=== PATIENT | male | born 1965 | race African-American/Black ===

== ENCOUNTER 2021-11-10 09:42 | Emergency (ER) | payer OTHER, SELFPAY ==
--- NOTE | ~2021-11-10 | XR_ITS ---
EXAMINATION: [id number] DATE: 11/10/2021 11:28 INDICATION: Neck pain. TECHNIQUE: 4 views of cervical spine were obtained. COMPARISON: None. FINDINGS: There is 2 mm retrolisthesis of C4 on C5 and C5 on C6. There is 11 degrees levoscoliosis of cervicothoracic spine. Vertebral body heights are normal. There is mildly decreased disc height at C 4-C5 and C5-C6. The facet joints are unremarkable. There is mild central canal stenosis at C4-C5 and C5-C6. IMPRESSION: 1. Mild cervical spondylosis. 2. Cervicothoracic levoscoliosis. Reviewed, dictated and finalized at location A. [employer]
[2021-11-10 09:51] VITALS: BP 163/84; PULSE 77; RESP 14; TEMP 36.2; O2SAT 96
--- NOTE | 2021-11-10 11:18 | ED.NECK ---
HPI - Neck Pain/Injury General Chief Complaint: Neck Pain/Injury Stated Complaint: neck pain x2 weeks Time Seen by Provider: 11/10/21 11:12 Source: patient Mode of arrival: ambulatory Limitations: no limitations History of Present Illness HPI Narrative: This is a 56-year-old male that presents to the emergency department for neck pain ongoing over the last couple of weeks. No known injury or trauma. Reports pain on the left side of his neck that radiates into her shoulder. Worse with certain movements and relieved with rest. He has been taking Tylenol and using icy hot with some relief as well. Denies fever, numbness, or weakness. Related Data Allergies Allergy/AdvReac Type Severity Reaction Status Date / Time shellfish derived AdvReac Severe N/V Verified 02/19/19 23:40 amoxicillin AdvReac Intermediate HIVES Verified 02/19/19 23:40 Review of Systems Review of Systems: CONSTITUTIONAL: Denies fever SKIN: Denies rash MUSCULOSKELETAL: Reports joint pain, and myalgia. NEUROLOGIC: Denies headache, numbness, or weakness. All systems reviewed & are unremarkable except as noted in HPI and below PMFSH Past Medical History Medical History (Updated 11/10/21 @ 12:15 by Karolina Rea PA-C) History of hypertension Social History Social History (Updated 11/10/21 @ 11:19 by Karolina Rea PA-C) Substance use: never Exam Narrative: GENERAL: Well-appearing, well-nourished, and in no acute distress. HEAD: Normocephalic, atraumatic. EYES: EOMI. NECK: Supple. No adenopathy or masses. No midline spinal tenderness CHEST: Clear to auscultation. No respiratory distress. No wheezes rales or rhonchi HEART: Regular rate and rhythm EXTREMITIES: Normal range of motion. No edema. Strength equal in bilateral upper extremities (5/5) SKIN: Warm, dry, no rash. NEURO: No focal deficits. Alert and oriented x3. PSYCH: Normal mood and affect Course Vital Signs Vital signs: Vital Signs Temperature 97.2 F L 11/10/21 09:51 Pulse Rate 77 11/10/21 09:51 Respiratory Rate 14 11/10/21 09:51 Blood Pressure 163/84 H 11/10/21 09:51 Pulse Oximetry 96 11/10/21 09:51 Temperature 97.2 F L 11/10/21 09:51 Pulse Rate 77 11/10/21 09:51 Respiratory Rate 14 11/10/21 09:51 Blood Pressure 163/84 H 11/10/21 09:51 Pulse Oximetry 96 11/10/21 09:51 MDM - Neck Pain/Injury MDM Narrative Medical decision making narrative: This is a 56 year old male that presents to the ER for neck pain present over the last couple weeks. No known injury or trauma. He is afebrile and nontoxic-appearing. He is neurologically intact. Cervical spine x-ray shows mild cervical spondylosis and cervicothoracic levoscoliosis. Patient was updated on case findings. Pain does seem to be more muscular in nature. He was instructed to rest, use heat, alternate Tylenol and anti-inflammatories. Will be prescribed a muscle relaxer as needed for pain. He is to follow-up with his primary care doctor. He was given warnings to return to the ER Imaging Data Radiologist's impression: ITS Impressions Cervical Spine X-Ray 11/10/21 11:33 IMPRESSION: 1. Mild cervical spondylosis. 2. Cervicothoracic levoscoliosis. Critical Care Time Critical Care Time Critical Care Time: No Discharge Plan Discharge Clinical Impression: Strain of neck muscle Qualifiers: Encounter type: initial encounter Qualified Code(s): S16.1XXA - Strain of muscle, fascia and tendon at neck level, initial encounter Patient Disposition: Home, Self-Care Condition: Stable Instructions: Cervical Strain (ED) Additional Instructions: Return to the ER if you experience fever, weakness, numbness, or any other symptoms that are concerning to you Rest, use ice/heat, take anti-inflammatories (Aleve, Ibuprofen, Naproxen, etc) or Tylenol as needed for pain as well as muscle relaxer (Flexeril) as needed for pain. Muscle relaxers can make you drowsy, do not drive if you t
[2021-11-10] MEDS: KETOROLAC (*BKC) 60 MG/2 ML VIAL IM (11:40)
== END 2021-11-10 12:30 | disposition home or self-care (01) ==
PROVIDERS: Emergency Provider Emergency Medicine
DX: S16.1XXA Strain of muscle, fascia and tendon at neck level, initial encounter (principal); I10 Essential (primary) hypertension; X58.XXXA Exposure to other specified factors, initial encounter
CPT/HCPCS: 72040; 96372; 99283; J1885

== ENCOUNTER 2025-06-02 14:07 | Emergency (ER) | payer OTHER, SELFPAY ==
--- NOTE | ~2025-06-02 | XR_ITS ---
EXAM/PROCEDURE: XR chest 2V - 06/02/2025 14:35 CDT HISTORY: 60 years old Male with cough x 3 wks, SOB with exertion, asthma, prev smoker TECHNIQUE: Two view(s) of the chest. COMPARISON: None available. FINDINGS: LUNGS/ PLEURA: No focal consolidation. No appreciable pneumothorax or large pleural effusion. HEART/ MEDIASTINUM: Heart appears normal in size. BONES: No acute osseous abnormality. OTHER: Visualized upper abdomen is unremarkable. IMPRESSION: No acute process. Reviewed, dictated and finalized at location A. IMPRESSION: No acute process.
[2025-06-02 14:22] VITALS: BP 136/71; PULSE 72; RESP 16; TEMP 36.4; O2SAT 98
--- NOTE | 2025-06-02 14:28 | ED.URI ---
HPI - URI/Sore Throat General Chief Complaint: Upper Respiratory Infection Stated Complaint: SORE THROAT/COUGH Time Seen by Provider: 06/02/25 14:28 Source: patient Mode of arrival: ambulatory Limitations: no limitations History of Present Illness HPI Narrative: 60-year-old male presents with complaint of postnasal drainage, scratchy throat, cough for 3 weeks. Reports intermittent mild nasal/ sinus congestion. Denies sinus pressure. Afebrile. Reports shortness of breath with exertion. Has tried [id number] DayQuil NyQuil cold and flu without relief of cough. All systems reviewed and negative except as noted above. Related Data Home Medications ?Medication ?Instructions ?Recorded ?Confirmed ?Last Taken ?Type amlodipine 10 mg tablet 10 mg PO DAILY 06/02/25 06/02/25 Unknown History escitalopram oxalate 20 mg tablet 10 mg PO DAILY 06/02/25 06/02/25 Unknown History ferrous sulfate 325 mg (65 mg 65 mg PO DAILY 06/02/25 06/02/25 Unknown History iron) tablet (FeroSul) finasteride 5 mg tablet 5 mg PO DAILY 06/02/25 06/02/25 Unknown History fluticasone propionate 50 1 spray intranasal DAILY 06/02/25 06/02/25 Unknown History mcg/actuation nasal spray,suspension losartan 100 mg tablet 100 mg PO DAILY 06/02/25 06/02/25 Unknown History pantoprazole 40 mg tablet,delayed 40 mg PO DAILY 06/02/25 06/02/25 Unknown History release sildenafil 100 mg tablet 100 mg PO Q24H PRN sexual activity 06/02/25 06/02/25 Unknown History tamsulosin 0.4 mg capsule 0.4 mg PO Q24H 06/02/25 06/02/25 Unknown History tiotropium bromide 2.5 2 puff inhalation Q24H 06/02/25 06/02/25 Unknown History mcg/actuation mist for inhalation (Spiriva Respimat) Allergies Allergy/AdvReac Type Severity Reaction Status Date / Time shellfish derived AdvReac Severe N/V Verified 06/02/25 14:13 amoxicillin AdvReac Intermediate HIVES Verified 06/02/25 14:13 Review of Systems Review of Systems: CONSTITUTIONAL: Denies fever, chills, or sweats. EYES: Denies visual changes, redness, or discharge. ENT: Reports rhinorrhea, congestion, postnasal drainage, itchy throat. Denies otalgia. CARDIOVASCULAR: Denies chest pain, palpitations, or edema. RESPIRATORY: reports cough . Denies dyspnea. GASTROINTESTINAL: Denies abdominal pain, nausea, vomiting, or diarrhea. GENITOURINARY: Denies dysuria or hematuria. SKIN: Denies rash or itching. MUSCULOSKELETAL: Denies back pain, joint pain, or myalgia. NEUROLOGIC: Denies headache, numbness, or weakness. PSYCHIATRIC: Denies anxiety or depression. All other systems reviewed are negative, except as documented in HPI. [facility] Past Medical History Medical History (Updated 06/02/25 @ 15:21 by Elsa Cantu NP) History of hypertension Social History Social History (Updated 11/10/21 @ 11:19 by Karolina Rea PA-C) Substance use: never Comments At time of signature, agree with nursing past medical, surgical, social and family history. There is no relevant family history pertinent to the presenting complaint. Exam Narrative: GENERAL: This is a well-nourished, well-developed patient, in no apparent distress. HEAD: normocephalic, atraumatic. EYES: PERRL. Sclera clear/white. Vision is grossly intact. EARS: External ears normal, auditory canals clear and without drainage, TMs normal without perforation. Hearing grossly intact. NOSE: External nose normal with no obvious nasal discharge, nares without redness, no rhinorrhea. THROAT: Mucous membranes moist, clear nasal drainage with mild erythema. No swelling or exudates. NECK: Neck supple, non-tender without lymphadenopathy, masses or thyromegaly. CARDIOVASCULAR: Regular rate and rhythm without murmurs, gallops, or rubs. RESPIRATORY: Clear to auscultation. Breath sounds equal bilaterally. No wheezes, rales, or rhonchi. SKIN: warm, Dry, intact with no suspicious lesions or rash, good texture and turgor. NEURO: awake, alert, and oriented to person, place and time. There were no obvious focal neurologic abnormalities. EXTREMITIES: No joint tenderness, effusion, or edema noted. Course Course Level of Care: Express Care Visit Vital Signs Vital signs: Vital Signs Temperature 36.4 C L 06/02/25 14:22 Pulse Rate 72 06/02/25 14:22 Respiratory Rate 16 06/02/25 14:22 Blood Pressure 136/71 06/02/25 14:22 Pulse Oximetry 98 06/02/25 14:22 Temperature 36.4 C L 06/02/25 14:22 Pulse Rate 72 06/02/25 14:22 Respiratory Rate 16 06/02/25 14:22 Blood Pressure 136/71 06/02/25 14:22 Pulse Oximetry 98 06/02/25 14:22 Reviewed MDM - URI/Sore Throat MDM Narrative Medical decision making narrative: normal chest x-ray. Will treat patient for bacterial sinusitis due to duration of symptoms. Patient is well-appearing, nontoxic. Recommend follow-up with primary care physician if not improving. Differential Diagnosis Differential diagnosis: Likely upper respiratory infection, sinusitis, viral infection and other ( Pneumonia) Imaging Data My impression: Agree with radiologist Radiologist's impression: EXAM/PROCEDURE: XR chest 2V - 06/02/2025 14:35 CDT HISTORY: 60 years old Male with cough x 3 wks, SOB with exertion, asthma, prev smoker TECHNIQUE: Two view(s) of the chest. COMPARISON: None available. FINDINGS: LUNGS/ PLEURA: No focal consolidation. No appreciable pneumothorax or large pleural effusion. HEART/ MEDIASTINUM: Heart appears normal in size. BONES: No acute osseous abnormality. OTHER: Visualized upper abdomen is unremarkable. IMPRESSION: No acute process. Discharge Plan Discharge Clinical Impression: Acute bacterial sinusitis Patient Disposition: Home Condition: Stable Instructions: Antibiotic Form, Sinusitis (ED) Additional Instructions: the x-ray of your chest was normal. Take medications as prescribed. Take an antihistamine daily such as Claritin or Zyrtec. Drink at least 64 oz of water a day. See your primary care physician if symptoms are not improving. Patient Language: Mohawk Prescriptions: New doxycycline hyclate 100 mg capsule 100 mg PO BID 7 Days Qty: 14 0RF benzonatate 200 mg capsule 200 mg PO TID PRN (Reason: cough) Qty: 20 0RF No Action amlodipine 10 mg tablet 10 mg PO DAILY escitalopram oxalate 20 mg tablet 10 mg PO DAILY ferrous sulfate [FeroSul] 325 mg (65 mg iron) tablet 65 mg PO DAILY finasteride 5 mg tablet 5 mg PO DAILY fluticasone propionate 50 mcg/actuation spray,suspension 1 spray INTRANASAL DAILY losartan 100 mg tablet 100 mg PO DAILY pantoprazole 40 mg tablet,delayed release (DR/EC) 40 mg PO DAILY sildenafil 100 mg tablet 100 mg PO Q24H PRN (Reason: sexual activity) tamsulosin 0.4 mg capsule 0.4 mg PO Q24H Spiriva Respimat 2.5 mcg/actuation mist 2 puff INHALATION Q24H cyclobenzaprine 10 mg tablet 10 mg PO TID PRN (Reason: muscle spasm) Qty: 14 0RF Follow-up/Referrals: [facility] [Primary Care Provider] - Time of Disposition: 15:22
== END 2025-06-02 15:24 | disposition home or self-care (01) ==
PROVIDERS: Emergency Provider Nurse Practitioner Family
DX: J01.90 Acute sinusitis, unspecified (principal); I10 Essential (primary) hypertension
CPT/HCPCS: 71046; 99213; G0463

== ENCOUNTER 2025-10-10 16:01 | Emergency (ER) | payer OTHER, SELFPAY ==
[2025-10-10 16:10] VITALS: BP 151/83; PULSE 76; RESP 16; TEMP 36.6; O2SAT 98
--- NOTE | 2025-10-10 16:26 | ED.URI ---
HPI - URI/Sore Throat General Chief Complaint: Upper Respiratory Infection Stated Complaint: COUGH Time Seen by Provider: 10/10/25 16:13 Source: patient and RN notes reviewed Mode of arrival: ambulatory Limitations: no limitations History of Present Illness HPI Narrative: 60-year-old male patient with history of COPD and well-controlled diabetes presents today with a 5 day history of productive cough and rhinorrhea. Denies fever or shortness of breath. He has been taking Mucinex and TheraFlu with intermittent improvement. He also uses Spiriva and has an albuterol inhaler but not been using the albuterol inhaler for this cough. Cough is keeping him awake at night. States blood sugars are well controlled anywhere from mid 90s to 110. Related Data Home Medications ?Medication ?Instructions ?Recorded ?Confirmed ?Last Taken ?Type amlodipine 10 mg tablet 10 mg PO DAILY 06/02/25 10/10/25 Unknown History escitalopram oxalate 20 mg tablet 10 mg PO DAILY 06/02/25 06/02/25 Unknown History ferrous sulfate 325 mg (65 mg 65 mg PO DAILY 06/02/25 06/02/25 Unknown History iron) tablet (FeroSul) finasteride 5 mg tablet 5 mg PO DAILY 06/02/25 06/02/25 Unknown History fluticasone propionate 50 1 spray intranasal DAILY 06/02/25 06/02/25 Unknown History mcg/actuation nasal spray,suspension losartan 100 mg tablet 100 mg PO DAILY 06/02/25 10/10/25 Unknown History pantoprazole 40 mg tablet,delayed 40 mg PO DAILY 06/02/25 10/10/25 Unknown History release sildenafil 100 mg tablet 100 mg PO Q24H PRN sexual activity 06/02/25 10/10/25 Unknown History tamsulosin 0.4 mg capsule 0.4 mg PO Q24H 06/02/25 10/10/25 Unknown History tiotropium bromide 2.5 2 puff inhalation Q24H 06/02/25 06/02/25 Unknown History mcg/actuation mist for inhalation (Spiriva Respimat) tirzepatide (weight loss) 5 mg/0.5 mg subcut 10/10/25 Unknown History mL subcutaneous pen injector (Zepbound) Allergies Allergy/AdvReac Type Severity Reaction Status Date / Time lisinopril Allergy Unknown Unknown Verified 10/10/25 16:12 shellfish derived AdvReac Severe N/V Verified 06/02/25 14:13 amoxicillin AdvReac Intermediate HIVES Verified 06/02/25 14:13 [facility] Past Medical History Medical History (Updated 10/10/25 @ 16:31 by Maxine Curry, TIGIST, JEWELL) COPD (chronic obstructive pulmonary disease) Diabetes History of hypertension Social History Social History Substance use: never Comments At time of signature, I have reviewed and agree with nursing past medical, surgical, social and family history unless otherwise noted. Please see nursing chart for further information. There is no relevant family history pertinent to the presenting complaint Exam Narrative: GENERAL: Well-appearing, well-nourished, and in no acute distress. HEAD: Normocephalic, atraumatic. EYES: EOMI. No redness or drainage. Conjunctivae normal. ENT: Mucous membranes pink and moist. Nares clear. + rhinorrhea. TMs normal bilaterally. Throat normal. Uvula midline. NECK: Normal AROM. Supple. No lymphadenopathy. CHEST: No respiratory distress. Clear to auscultation. HEART: Regular rate and rhythm. No murmur appreciated. EXTREMITIES: Normal range of motion. No edema. SKIN: Warm, dry, no rash. Capillary refill normal. Normal skin turgor. NEURO: No focal deficits. Alert and oriented x3. Gait steady. PSYCH: Normal affect. No signs of depression or anxiety. Course Course Level of Care: Express Care Visit Vital Signs Vital signs: Vital Signs Temperature 98 F 10/10/25 16:10 Pulse Rate 76 10/10/25 16:10 Respiratory Rate 16 10/10/25 16:10 Blood Pressure 151/83 H 10/10/25 16:10 Pulse Oximetry 98 10/10/25 16:10 Temperature 98 F 10/10/25 16:10 Pulse Rate 76 10/10/25 16:10 Respiratory Rate 16 10/10/25 16:10 Blood Pressure 151/83 H 10/10/25 16:10 Pulse Oximetry 98 10/10/25 16:10 Reviewed MDM - URI/Sore Throat MDM Narrative Medical decision making narrative: 60-year-old male patient with history of COPD and well-controlled diabetes presents today with a 5 day history of productive cough and rhinorrhea. Denies fever or shortness of breath. He has been taking Mucinex and TheraFlu with intermittent improvement. He also uses Spiriva and has an albuterol inhaler but not been using the albuterol inhaler for this cough. Cough is keeping him awake at night. States blood sugars are well controlled anywhere from mid 90s to 110. Upon exam, rhinorrhea present. Lung sounds normal. Patient will be treated burst of prednisone, Tessalon Perles, and a refill of his albuterol inhaler. Symptoms likely viral in etiology. Discussed [id number] medication use and duration of illness. Vital signs stable. Patient agrees with plan. Anticipatory guidance and ED precautions given. Differential Diagnosis Differential diagnosis: Likely upper respiratory infection, viral infection and other (Pneumonia, COPD exacerbation) Critical Care Time Critical Care Time Critical Care Time: No Discharge Plan Discharge Clinical Impression: COPD exacerbation Upper respiratory infection Qualifiers: URI type: unspecified URI Qualified Code(s): J06.9 - Acute upper respiratory infection, unspecified Patient Disposition: Home Condition: Stable Instructions: Upper Respiratory Infection (DC) Additional Instructions: Please take all medications as prescribed. Use albuterol inhaler coughing episodes, shortness of breath, or wheezing. As discussed, if symptoms worsen to include fever greater than 100.3, shortness of breath, wheezing, please go to the ER immediately for further evaluation and treatment. Patient Language: German Prescriptions: New benzonatate 200 mg capsule 200 mg PO TID PRN (Reason: cough) Qty: 20 0RF prednisone 50 mg tablet 50 mg PO DAILY 5 Days Qty: 5 0RF albuterol sulfate 90 mcg/actuation HFA aerosol inhaler 2 inh inhalation Q4-6H PRN (Reason: shortness of breath or wheezing) Qty: 8.5 0RF No Action Zepbound 5 mg/0.5 mL pen injector SUBCUT amlodipine 10 mg tablet 10 mg PO DAILY escitalopram oxalate 20 mg tablet 10 mg PO DAILY ferrous sulfate [FeroSul] 325 mg (65 mg iron) tablet 65 mg PO DAILY finasteride 5 mg tablet 5 mg PO DAILY fluticasone propionate 50 mcg/actuation spray,suspension 1 spray INTRANASAL DAILY losartan 100 mg tablet 100 mg PO DAILY pantoprazole 40 mg tablet,delayed release (DR/EC) 40 mg PO DAILY sildenafil 100 mg tablet 100 mg PO Q24H PRN (Reason: sexual activity) tamsulosin 0.4 mg capsule 0.4 mg PO Q24H Spiriva Respimat 2.5 mcg/actuation mist 2 puff INHALATION Q24H cyclobenzaprine 10 mg tablet 10 mg PO TID PRN (Reason: muscle spasm) Qty: 14 0RF Follow-up/Referrals: Raina,Mary [Other] Time of Disposition: 16:32
== END 2025-10-10 16:36 | disposition home or self-care (01) ==
PROVIDERS: Emergency Provider Nurse Practitioner
DX: J44.1 Chronic obstructive pulmonary disease with (acute) exacerbation (principal); J06.9 Acute upper respiratory infection, unspecified; E11.9 Type 2 diabetes mellitus without complications; I10 Essential (primary) hypertension
CPT/HCPCS: 99213; G0463